=== PATIENT | female | born 1975 | race African-American/Black ===

== ENCOUNTER 2017-11-24 02:46 | Inpatient (IN) ==
[2017-11-24] MEDS ORDERED: SODIUM CHLORIDE 0.9% 1,000 ML IV STA (04:54)
[2017-11-24 05:40] LABS: Basophils % 0.1 % (0.0-0.8); Eosinophils # 0.2 10*3/uL (0.0-0.87); Eosinophils % 1.9 % (0.00-10.9); Hematocrit 39.3 VOL% (35.7-47.0); Hemoglobin 12.7 GM/DL (12.0-16.0); Immature Granulocytes % 0.2 %; Immature Granulocytes Absolute 0.02 #; Lymphocytes # 2.2 10*3/uL (1.4-4.0); Lymphocytes % 26.4 % (21.3-54.2); Mean Corpuscular HGB Conc 32.3 GM/DL (32-36); Mean Corpuscular Hemoglobin 28 PG (27-34); Mean Corpuscular Volume 86.2 FL (87-102); Mean Platelet Volume 11.2 FL (9.6-12.0); Monocytes # 0.7 10*3/uL (0.11-0.8); Monocytes % 8.1 % (1.7-12.7); Neutrophils # 5.3 10*3/uL (1.4-7.4); Neutrophils % 63.3 % (38.7-73.9); Platelet Count 353 T/CUMM (130-400); Red Blood Count 4.56 MC/CUMM (3.8-5.5); Red Cell Distribution Width 14.6 % (9.3-17.3); White Blood Count 8.4 T/CUMM (4-12)
[2017-11-24 06:02] LABS: Alanine Aminotransferase 25 U/L (13-56); Albumin 3.4 G/DL (3.4-5.0); Alkaline Phosphatase 90 U/L (45-117); Aspartate Amino Transferase 11 U/L (0-37); Bilirubin,Total < 0.39 MG/DL (0.2-1.0); Blood Urea Nitrogen 13 MG/DL (7-18); Calcium 8.5 MG/DL (8.5-10.1); Glucose 179 MG/DL (74-106); Osmolality,Calculated 276.8 MOS/KG (273-304); Sodium 137 MMOL/L (136-145); Total Protein 7.1 G/DL (6.4-8.3); Troponin I Only < 0.015 NG/ML (0.00-0.045)
[2017-11-24] MEDS ORDERED: ACETAMINOPHEN 325 MG TABLET PO PRN (10:14)
[2017-11-24] MEDS ORDERED: ONDANSETRON 4 MG/2 ML VIAL IV PRN (10:14)
[2017-11-24] MEDS ORDERED: DEXTROSE 50% 25 GM/50 ML VIAL IV PRN (10:39)
[2017-11-24] MEDS ORDERED: GLUCAGON 1 MG VIAL IM PRN (10:39)
[2017-11-24] MEDS: SODIUM CHLORIDE 0.9% 1,000 ML IV SCH (11:00)
[2017-11-24 11:15] LABS: INR 0.9; Partial Thromboplastin Time 25.7 SECS (0-40)
[2017-11-24] MEDS ORDERED: ENOXAPARIN 120 MG/0.8 ML SYRINGE SUBCUT SCH (11:30)
[2017-11-24] MEDS: INSULIN LISPRO 100 UNIT/ML SUBCUT SCH ×3 (14:14→21:28)
[2017-11-25] MEDS: SODIUM CHLORIDE 0.9% 1,000 ML IV SCH (00:20)
[2017-11-25 05:38] LABS: Basophils % 0.2 % (0.0-0.8); Eosinophils # 0.3 10*3/uL (0.0-0.87); Eosinophils % 5.5 % (0.00-10.9); Hematocrit 35.9 VOL% (35.7-47.0); Hemoglobin 11.5 GM/DL (12.0-16.0); Immature Granulocytes % 0.2 %; Immature Granulocytes Absolute 0.01 #; Lymphocytes # 2.9 10*3/uL (1.4-4.0); Lymphocytes % 53.5 % (21.3-54.2); Mean Corpuscular Hemoglobin 28 PG (27-34); Mean Corpuscular Volume 87.1 FL (87-102); Mean Platelet Volume 11.6 FL (9.6-12.0); Monocytes # 0.5 10*3/uL (0.11-0.8); Monocytes % 8.7 % (1.7-12.7); Neutrophils # 1.7 10*3/uL (1.4-7.4); Neutrophils % 31.9 % (38.7-73.9); Platelet Count 314 T/CUMM (130-400); Red Blood Count 4.12 MC/CUMM (3.8-5.5); Red Cell Distribution Width 14.6 % (9.3-17.3); White Blood Count 5.4 T/CUMM (4-12)
[2017-11-25 05:45] LABS: PT Patient Result 10.3 SECS; Partial Thromboplastin Time 27.3 SECS (0-40)
[2017-11-25 06:04] LABS: Eosinophils 6 % (0-10); Hypochromasia 1+; Lymphocytes 53 % (20-55); Segmented Neutrophils 32 % (50-85); Total Cells Counted 100
[2017-11-25 06:05] LABS: Platelet Estimate Normal
[2017-11-25 06:06] LABS: Calcium 7.8 MG/DL (8.5-10.1); Osmolality,Calculated 284.3 MOS/KG (273-304)
[2017-11-25] MEDS ORDERED: PANTOPRAZOLE 40 MG TABLET PO SCH (09:00)
[2017-11-25] MEDS ORDERED: LISINOPRIL/HCTZ 10-12.5 MG TABLET PO SCH (09:00)
[2017-11-25] MEDS ORDERED: TERBINAFINE 250 MG TABLET PO SCH (09:00)
[2017-11-25] MEDS: INSULIN LISPRO 100 UNIT/ML SUBCUT SCH ×2 (09:42→11:45)
[2017-11-25 14:07] VITALS: BP 129/73
[2017-11-25] MEDS ORDERED: NON-FORMULARY MEDICATION (Insulin Degludec [Tresiba Flextouch U-100] 50 UNIT) SUBCUT SCH (19:00)
== END 2017-11-25 14:12 | disposition home or self-care (01) | DRG 312 ==
LOC: EDUNIT# → EDBD → N.ED 02:46 → N.EDINP 08:51 → SUATTDRO 08:51 → N.EDINP 13:05 → N.4E 13:42
PROVIDERS: ADMIT Internal Medicine; ATTEND Hospitalist

== ENCOUNTER 2020-11-11 18:35 | Inpatient (IN) ==
[2020-11-11 19:07] LABS: Basophils % 0.3 % (0.0-0.8); Eosinophils % 0.1 % (0.00-10.9); Hematocrit 48.4 VOL% (35.7-47.0); Hemoglobin 14.3 GM/DL (12.0-16.0); Immature Granulocytes % 1.5 %; Immature Granulocytes Absolute 0.19 #; Lymphocytes # 1.5 10*3/uL (1.4-4.0); Lymphocytes % 11.9 % (21.3-54.2); Mean Corpuscular HGB Conc 29.5 GM/DL (32-36); Mean Corpuscular Volume 94.9 FL (87-102); Mean Platelet Volume 11.8 FL (9.6-12.0); Monocytes % 7.2 % (1.7-12.7); Platelet Count 389 T/CUMM (130-400); Red Cell Distribution Width 15.9 % (9.3-17.3); White Blood Count 12.7 T/CUMM (4-12)
[2020-11-11 19:25] LABS: Albumin 3.5 G/DL (3.4-5.0); Bilirubin,Total 0.4 MG/DL (0.2-1.0); Calcium 9.6 MG/DL (8.5-10.1); Osmolality,Calculated 286.1 MOS/KG (273-304); Total Protein 8.6 G/DL (6.4-8.3)
[2020-11-11 19:26] LABS: Bilirubin,Urine Negative (Negative); Blood, Urine Moderate mg/dL (Negative); Glucose,Urine (UA) >=500 mg/dL (Negative); Ketones,Urine 80 mg/dL (Negative); Mucus,Urine Occasional /LPF (Occasional); Nitrite,Urine Negative (Negative); Protein,Urine 30 MG/DL; Squamous Epithelial Cell,Urine Occasional /HPF (0-10); Urine Appearance CLEAR (Clear); Urine Color Straw (Yellow); Urine Specific Gravity 1.017 (1.001-1.035); Urine Urobilinogen < 2.0 EU/DL (0.2-1.0); WBC,Urine <1 /HPF (0-6)
[2020-11-11] MEDS ORDERED: LACTATED RINGERS 1,000 ML IV ONE (20:47)
[2020-11-11 21:32] LABS: ABG Base Excess -27.3 MMOL/L (-2.5-2.5); ABG HCO3 6.7 MMOL/L (20-26); ABG Oxygen Saturation 98.1 % (95-100); ABG TCO2 3.4 MMOL/L (23-27)
[2020-11-11 21:34] LABS: ABG PCO2 13.7 MM HG (35-48); ABG PH 7.032 (7.35-7.45)
[2020-11-11] MEDS ORDERED: INSULIN REGULAR DRIP 100 ML IV PRN (21:40)
[2020-11-11] MEDS ORDERED: ENOXAPARIN 30 MG/0.3 ML SYRINGE SUBCUT STA (22:48)
[2020-11-11] MEDS ORDERED: ENOXAPARIN 100 MG/ML SYRINGE SUBCUT ONE (22:52)
[2020-11-12] MEDS ORDERED: SODIUM CHLORIDE 0.9% 1,000 ML IV STA (00:04)
[2020-11-12] MEDS ORDERED: SODIUM BICARBONATE 50 MEQ/50 ML VIAL IV ONE ×2 (00:05→00:54)
[2020-11-12] MEDS ORDERED: SODIUM BICARBONATE 50 MEQ/50 ML VIAL IV STA (00:08)
[2020-11-12] MEDS ORDERED: INSULIN REGULAR 100 UNIT/ML IV ONE (00:09)
[2020-11-12] MEDS ORDERED: POTASSIUM CHLORIDE RIDER 10 MEQ in PREMIX 1 EACH IV PRN (00:09)
[2020-11-12] MEDS ORDERED: MAGNESIUM SULF RIDER 4 GM in PREMIX 1 EACH IV PRN (00:09)
[2020-11-12] MEDS ORDERED: SODIUM BICARB INJ 100 MEQ in STERILE WATER INJ 400 ML IV PRN (00:09)
[2020-11-12] MEDS ORDERED: SODIUM PHOSPHATE INJ 26 MMOL in SODIUM CHLORIDE 0.9% 250 ML IV PRN (00:09)
[2020-11-12] MEDS ORDERED: MAGNESIUM SULF RIDER 2 GM in PREMIX 1 EACH IV PRN (00:09)
[2020-11-12] MEDS ORDERED: DEXTROSE 50% 25 GM/50 ML VIAL IV PRN ×4 (00:09→14:38)
[2020-11-12 00:32] LABS: ABG HCO3 6.7 MMOL/L (20-26); ABG Oxygen Saturation 98.7 % (95-100); ABG TCO2 3.3 MMOL/L (23-27)
[2020-11-12 00:36] LABS: ABG PCO2 12.7 MM HG (35-48); ABG PH 7.047 (7.35-7.45)
[2020-11-12 00:43] LABS: Calcium 8.5 MG/DL (8.5-10.1)
[2020-11-12] MEDS: SODIUM CHLORIDE 0.9% 1,000 ML IV SCH ×2 (01:15→06:07)
[2020-11-12] MEDS: DEXTROSE 5% NACL 0.9% 1,000 ML IV SCH ×5 (02:13→11:11)
[2020-11-12 02:44] LABS: ABG HCO3 8.5 MMOL/L (20-26); ABG Oxygen Saturation 98.9 % (95-100)
[2020-11-12 02:46] LABS: ABG PCO2 16.1 MM HG (35-48); ABG PH 7.134 (7.35-7.45)
[2020-11-12 04:30] LABS: Basophils % 0.3 % (0.0-0.8); Hematocrit 41.8 VOL% (35.7-47.0); Hemoglobin 12.7 GM/DL (12.0-16.0); Immature Granulocytes % 1.9 %; Immature Granulocytes Absolute 0.29 #; Lymphocytes # 2.9 10*3/uL (1.4-4.0); Lymphocytes % 19.1 % (21.3-54.2); Mean Corpuscular HGB Conc 30.4 GM/DL (32-36); Mean Corpuscular Volume 92.9 FL (87-102); Mean Platelet Volume 11.8 FL (9.6-12.0); Monocytes % 11.1 % (1.7-12.7); Neutrophils % 67.6 % (38.7-73.9); Platelet Count 318 T/CUMM (130-400); Red Cell Distribution Width 16.1 % (9.3-17.3); White Blood Count 15.3 T/CUMM (4-12)
[2020-11-12 04:45] LABS: Calcium 8.4 MG/DL (8.5-10.1); Osmolality,Calculated 295.8 MOS/KG (273-304)
[2020-11-12 04:51] LABS: ABG Base Excess -20.5 MMOL/L (-2.5-2.5); ABG HCO3 9.9 MMOL/L (20-26); ABG TCO2 6.4 MMOL/L (23-27)
[2020-11-12 04:53] LABS: ABG PH 7.176 (7.35-7.45)
[2020-11-12 04:54] LABS: ABG PCO2 19.1 MM HG (35-48)
[2020-11-12] MEDS ORDERED: SODIUM CHLORIDE 0.9% 1,000 ML IV SCH (05:09)
[2020-11-12 07:50] LABS: Osmolality,Calculated 298.7 MOS/KG (273-304)
[2020-11-12] MEDS ORDERED: GLUCAGON 1 MG VIAL IM PRN ×2 (08:49→14:38)
[2020-11-12] MEDS: PANTOPRAZOLE 40 MG TABLET PO SCH (09:00)
[2020-11-12] MEDS: INSULIN NPH/REGULAR 70/30 100 UNIT/ML SUBCUT SCH ×2 (09:00→16:55)
[2020-11-12] MEDS: APIXABAN 5 MG TABLET PO SCH ×2 (09:00→21:17)
[2020-11-12 12:55] LABS: ABG HCO3 16.5 MMOL/L (20-26); ABG Oxygen Saturation 99.3 % (95-100); ABG PCO2 38.3 MM HG (35-48); ABG PH 7.249 (7.35-7.45); ABG TCO2 15.3 MMOL/L (23-27)
[2020-11-12 13:40] LABS: Calcium 8.1 MG/DL (8.5-10.1); Osmolality,Calculated 299.4 MOS/KG (273-304)
[2020-11-12] MEDS: INSULIN REGULAR 100 UNIT/ML SUBCUT SCH ×2 (16:55→23:12)
[2020-11-12 17:49] LABS: Calcium 8.1 MG/DL (8.5-10.1); Osmolality,Calculated 289.7 MOS/KG (273-304)
[2020-11-12] MEDS: SODIUM CHLORIDE 0.45% 1,000 ML IV SCH (18:45)
[2020-11-12 21:14] LABS: Calcium 8.3 MG/DL (8.5-10.1); Osmolality,Calculated 292.6 MOS/KG (273-304)
[2020-11-12] MEDS ORDERED: ONDANSETRON 4 MG/2 ML VIAL IV PRN (22:30)
[2020-11-12] MEDS: ACETAMINOPHEN 325 MG TABLET PO PRN (23:09)
[2020-11-13] MEDS: SODIUM CHLORIDE 0.45% 1,000 ML IV SCH (02:30)
[2020-11-13] MEDS: ACETAMINOPHEN 325 MG TABLET PO PRN (03:48)
[2020-11-13 07:37] LABS: ABG HCO3 16.5 MMOL/L (20-26); ABG Oxygen Saturation 99.2 % (95-100); ABG PH 7.339 (7.35-7.45); ABG TCO2 13.1 MMOL/L (23-27); Pt O2 Delivery Device Room Air
[2020-11-13 09:12] LABS: Basophils % 0.2 % (0.0-0.8); Eosinophils % 0.2 % (0.00-10.9); Hematocrit 35.6 VOL% (35.7-47.0); Hemoglobin 11.2 GM/DL (12.0-16.0); Immature Granulocytes % 0.5 %; Immature Granulocytes Absolute 0.04 #; Lymphocytes # 2.5 10*3/uL (1.4-4.0); Lymphocytes % 29.1 % (21.3-54.2); Mean Corpuscular HGB Conc 31.5 GM/DL (32-36); Mean Corpuscular Volume 89.4 FL (87-102); Mean Platelet Volume 11.8 FL (9.6-12.0); Monocytes % 10.7 % (1.7-12.7); Neutrophils % 59.3 % (38.7-73.9); Platelet Count 248 T/CUMM (130-400); Red Blood Count 3.98 MC/CUMM (3.8-5.5); Red Cell Distribution Width 16.7 % (9.3-17.3); White Blood Count 8.7 T/CUMM (4-12)
[2020-11-13] MEDS: INSULIN NPH/REGULAR 70/30 100 UNIT/ML SUBCUT SCH ×2 (09:14→16:27)
[2020-11-13] MEDS: INSULIN REGULAR 100 UNIT/ML SUBCUT SCH ×4 (09:14→22:05)
[2020-11-13] MEDS: FLUoxetine 20 MG CAPSULE PO SCH ×2 (09:15→20:54)
[2020-11-13] MEDS: MULTIVITAMIN (CENTRUM) TABLET PO SCH (09:15)
[2020-11-13] MEDS: APIXABAN 5 MG TABLET PO SCH ×2 (09:15→20:54)
[2020-11-13 09:36] LABS: Calcium 8.4 MG/DL (8.5-10.1); Osmolality,Calculated 284.3 MOS/KG (273-304)
[2020-11-13] MEDS ORDERED: SODIUM BICARB INJ 150 MEQ in STERILE WATER INJ 1,000 ML IV ONE (10:00)
[2020-11-13] MEDS: PANTOPRAZOLE 40 MG TABLET PO SCH (10:21)
[2020-11-13] MEDS ORDERED: diphenhydrAMINE CAP 25 MG CAPSULE PO PRN (10:57)
[2020-11-13] MEDS ORDERED: MORPHINE 4 MG/1 ML VIAL IV PRN (10:57)
[2020-11-13] MEDS ORDERED: BISACODYL 5 MG TABLET PO PRN (10:57)
[2020-11-13] MEDS ORDERED: CALCIUM CARBONATE CHEW 500 MG TABLET PO PRN (10:57)
[2020-11-13] MEDS ORDERED: GLUCAGON 1 MG VIAL IM PRN (10:57)
[2020-11-13] MEDS ORDERED: ONDANSETRON 4 MG/2 ML VIAL IV PRN (10:57)
[2020-11-13] MEDS ORDERED: PROMETHAZINE 25 MG/1 ML VIAL IM PRN (10:57)
[2020-11-13] MEDS ORDERED: DEXTROSE 50% 25 GM/50 ML VIAL IV PRN (10:57)
[2020-11-13] MEDS ORDERED: traZODone 50 MG TABLET PO PRN (10:57)
[2020-11-13] MEDS ORDERED: hydrALAZINE 20 MG/1 ML VIAL IV PRN (10:57)
[2020-11-13] MEDS ORDERED: LACTULOSE 20 GM/30 ML UDCUP PO PRN (10:57)
[2020-11-13] MEDS ORDERED: SIMETHICONE CHEW 125 MG TABLET PO PRN (10:57)
[2020-11-13] MEDS ORDERED: ZALEPLON 5 MG CAPSULE PO PRN (10:57)
[2020-11-13] MEDS ORDERED: ALUMINUM/MAGNES/SIMETH MAX STR 30 ML UDCUP PO PRN (10:57)
[2020-11-13] MEDS ORDERED: DOCUSATE SODIUM 100 MG CAPSULE PO PRN (10:57)
[2020-11-13] MEDS ORDERED: PROMETHAZINE 25 MG TABLET PO PRN (10:57)
[2020-11-13 13:15] LABS: PT Patient Result 10.9 SECS (9.8-11.9); Partial Thromboplastin Time 34.4 SECS (23.9-33.8)
[2020-11-13] MEDS ORDERED: ATORVASTATIN 20 MG TABLET PO SCH (21:00)
[2020-11-14 03:33] LABS: Allen Test Positive; Pt O2 Delivery Device Room Air
[2020-11-14 03:34] LABS: ABG Base Excess -2.8 MMOL/L (-2.5-2.5); ABG Oxygen Saturation 97.1 % (95-100); ABG PCO2 37.4 MM HG (35-48); ABG PH 7.376 (7.35-7.45); ABG PO2 82.5 MM HG (80-95); ABG TCO2 19.8 MMOL/L (23-27)
[2020-11-14 05:56] LABS: Basophils % 0.4 % (0.0-0.8); Eosinophils # 0.1 10*3/uL (0.0-0.87); Eosinophils % 1.5 % (0.00-10.9); Hematocrit 32.3 VOL% (35.7-47.0); Hemoglobin 10.6 GM/DL (12.0-16.0); Immature Granulocytes % 0.4 %; Immature Granulocytes Absolute 0.02 #; Lymphocytes # 2.4 10*3/uL (1.4-4.0); Lymphocytes % 50.5 % (21.3-54.2); Mean Corpuscular HGB Conc 32.8 GM/DL (32-36); Mean Corpuscular Volume 87.3 FL (87-102); Mean Platelet Volume 11.7 FL (9.6-12.0); Monocytes % 11.3 % (1.7-12.7); Neutrophils % 35.9 % (38.7-73.9); Platelet Count 232 T/CUMM (130-400); Red Cell Distribution Width 16.4 % (9.3-17.3); White Blood Count 4.8 T/CUMM (4-12)
[2020-11-14 06:12] LABS: Albumin 2.3 G/DL (3.4-5.0); Bilirubin,Total 0.5 MG/DL (0.2-1.0); Calcium 7.9 MG/DL (8.5-10.1); Osmolality,Calculated 281.4 MOS/KG (273-304); Risk Ratio 2.23; Total Protein 5.9 G/DL (6.4-8.3); VLDL CHOLESTEROL 19.4 MG/DL
[2020-11-14 06:26] LABS: Eosinophils 2 % (0-10); Hypochromasia Slight; Lymphocytes 39 % (20-55); Myelocytes 1 %; Platelet Estimate Normal; Segmented Neutrophils 49 % (50-85); Total Cells Counted 100
[2020-11-14] MEDS: PANTOPRAZOLE 40 MG TABLET PO SCH (08:56)
[2020-11-14] MEDS: APIXABAN 5 MG TABLET PO SCH (08:56)
[2020-11-14] MEDS: MULTIVITAMIN (CENTRUM) TABLET PO SCH (08:56)
[2020-11-14] MEDS: INSULIN NPH/REGULAR 70/30 100 UNIT/ML SUBCUT SCH (08:57)
[2020-11-14] MEDS: FLUoxetine 20 MG CAPSULE PO SCH (08:57)
[2020-11-14] MEDS: INSULIN REGULAR 100 UNIT/ML SUBCUT SCH ×2 (08:58→12:48)
[2020-11-14 12:01] VITALS: BP 149/78
[2020-11-14] MEDS ORDERED: POTASSIUM CHLORIDE 20 MEQ TABLET PO ONE (12:26)
[2020-11-15 12:17] LABS: von Willebrand Factor Activity 254 % (55 - 200)
[2020-11-16 09:06] LABS: Coag Factor VIII Activity Assa 164 % (55 - 200)
[2020-11-16 09:51] LABS: DRVVT Screen Ratio 1.06 ratio (<1.20); INR 1.1 (0.9-1.1)
[2020-11-16 16:10] LABS: Phospholipid Ab IgM, S < 9.4 MPL
[2020-11-19 21:26] LABS: FACV Specimen Whole Blood
[2020-11-21 11:36] LABS: Protein C Antigen 84 % (70-150)
[2020-11-24 17:01] LABS: FACV Specimen Whole Blood
[2020-11-28 17:41] LABS: PT PCR Specimen Whole Blood; Prothrombin (F2) G20210A Varia Negative
== END 2020-11-14 14:50 | disposition home or self-care (01) | DRG 637 ==
LOC: N.ED 18:35 → N.EDINP 11-12 00:09 → SUATTDRO 11-12 00:09 → N.EDINP 11-12 15:23 → N.5E 11-12 15:24
PROVIDERS: ADMIT Internal Medicine; ATTEND Internal Medicine